=== PATIENT | female | born 1970 | race Caucasian/White ===

== ENCOUNTER 2019-07-24 20:12 | Emergency (ER) | payer BC ==
[~2019-07-24] VITALS: Ht 162.6 cm; Wt 104.0 kg
[~2019-07-24 20:12] MED LIST: ALPR-624 PO; CLON-527 PO; COM5T PO; CYCL-394 PO; DICY10CA88 PO; EST1T PO; HYDR-3965 PO; HYOS-13 PO; LEVO175T52 PO; TOP100T PO; VENL-190 PO; ZOLP5TAB8 PO
[2019-07-24 20:48] LABS: BASOPHILS # (AUTO) 0.1 X10'3 (0-0.2); BASOPHILS % (AUTO) 1.2 % (0-1); EOSINOPHILS # (AUTO) 0.2 X10'3 (0-0.9); EOSINOPHILS % (AUTO) 1.8 % (0-6); HEMATOCRIT 44.7 % (35.0-45.0); HEMOGLOBIN 15.1 g/dl (12.0-16.0); LYMPHOCYTES % (AUTO) 36.1 % (21-51); MEAN CORPUSCULAR HEMOGLOBIN 30.9 PG (27.0-31.0); MEAN CORPUSCULAR HGB CONC 33.8 g/dL (33.0-36.5); MEAN CORPUSCULAR VOLUME 91.4 FL (78-98); MEAN PLATELET VOLUME 7.3 FL (7.4-10.4); MONOCYTES # (AUTO) 0.7 X10'3 (0-0.9); MONOCYTES % (AUTO) 6.3 % (2-12); NEUTROPHILS # (AUTO) 6.1 X10'3 (1.8-7.7); NEUTROPHILS % (AUTO) 54.6 % (42-75); PLATELET COUNT 384 X10'3 (140-440); RED BLOOD COUNT 4.89 X10'6 (4.20-5.60); RED CELL DISTRIBUTION WIDTH 14.3 % (11.5-14.5); WHITE BLOOD COUNT 11.1 X10'3 (4.5-11.0)
[2019-07-24 21:00] LABS: ALANINE AMINOTRANSFERASE 51 U/L (12-78); ALBUMIN 3.9 G/DL (3.4-5.0); ALBUMIN/GLOBULIN RATIO 0.8 (1.1-1.5); ALKALINE PHOSPHATASE 104 IU/L (46-116); AMYLASE 24 U/L (25-115); ANION GAP 9 (8-16); ASPARTATE AMINO TRANSFERASE 26 U/L (10-37); BILIRUBIN,TOTAL 0.2 MG/DL (0.1-1.0); BLOOD UREA NITROGEN 17 MG/DL (7-18); BUN/CREATININE RATIO 13.8 (6.6-38.0); CALCIUM 9.8 MG/DL (8.5-10.1); CHLORIDE 104 MMOL/L (99-107); CREATININE 1.23 MG/DL (0.40-0.90); GLUCOSE 132 MG/DL (70-104); LIPASE 130 U/L (73-393); POTASSIUM 3.5 MMOL/L (3.5-5.1); SODIUM 142 MMOL/L (135-145); TOTAL CARBON DIOXIDE 28.6 MMOL/L (24-32); TOTAL PROTEIN 8.5 G/DL (6.4-8.2); eGFR 47 ML/MIN
--- NOTE | 2019-07-24 21:25 | NUR ---
Pt up to restroom to provide urine sample.
[2019-07-24 21:56] LABS: URINE HCG NEGATIVE (NEG)
[2019-07-24 21:57] LABS: COLOR,URINE YELLOW (Yellow); GLUCOSE, URINE NEGATIVE (Neg); KETONES,URINE NEGATIVE (Neg); LEUKOCYTE ESTERASE ,URINE NEGATIVE (Neg); NITRITES, URINE NEGATIVE (Neg); OCCULT BLOOD,URINE TRACE-INTACT (Neg); PH,URINE 5.5 (4.8-8.0); PROTEIN,URINE NEGATIVE (Neg); UROBILINOGEN,URINE 0.2 E.U/dL (0.2-1.0)
[2019-07-24 22:04] LABS: CLARITY,URINE SLIGHTLY CLOUDY (Clear); UA COLLECTION TYPE CLN CATCH MIDSTREAM
[2019-07-24] MEDS ORDERED: morphine 4 MG/ML inj SYRINge IV PRN (22:05)
[2019-07-24] MEDS ORDERED: normal saline 1000ML IV soln IVB ONE (22:05)
[2019-07-24] MEDS ORDERED: ondansetron/PF 4mg/2ml inj IV ONE (22:05)
[2019-07-24] MEDS ORDERED: famotidine/PF 10 mg/ml inj IV ONE (22:05)
[2019-07-24] MEDS ORDERED: ketorolac trometh. 30mg/ml inj. IV ONE (22:05)
[2019-07-24 22:26] LABS: BACTERIA,URINE FEW /HPF (Neg); MUCUS STRANDS FEW /LPF (Neg); RBC,URINE 0-2 /HPF (0-2); SQUAMOUS EPITHELIAL CELL,UR FEW /LPF (FEW); WBC,URINE 0-4 /HPF (0-4)
[2019-07-24 22:27] LABS: FINE GRANULAR CAST 0-3 /LPF (NEGATIVE); HYALINE CASTS 0-3 /LPF (NEGATIVE); URIC ACID CRYSTALS 1+ /HPF (NEGATIVE)
[2019-07-25 00:46] VITALS: BP 136/80
== END 2019-07-25 00:50 | disposition home or self-care (01) ==
LOC: ER 20:13
DX: K59.00 Constipation, unspecified (principal); K44.9 Diaphragmatic hernia without obstruction or gangrene; R11.2 Nausea with vomiting, unspecified; R19.7 Diarrhea, unspecified; R50.9 Fever, unspecified; I10 Essential (primary) hypertension; G89.29 Other chronic pain; F41.9 Anxiety disorder, unspecified; F32.9 Major depressive disorder, single episode, unspecified; F12.90 Cannabis use, unspecified, uncomplicated; Z88.8 Allergy status to other drugs, medicaments and biological substances; Z88.1 Allergy status to other antibiotic agents; Z79.899 Other long term (current) drug therapy; Z90.49 Acquired absence of other specified parts of digestive tract; Z87.442 Personal history of urinary calculi; Z98.890 Other specified postprocedural states; Z90.710 Acquired absence of both cervix and uterus
CPT/HCPCS: 36415; 74176; 76700; 80053; 81001; 81025; 82150; 83690; 85025; 96361; 96374; 96375; 99284; J1885; J2405; J3490; J7030

== ENCOUNTER 2021-01-24 08:31 | Emergency (ER) | payer BC ==
[~2021-01-24] VITALS: Ht 160 cm; Wt 105.6 kg
[2021-01-24] MEDS ORDERED: proCHLORperazine 10 MG/2 ml inj IV ONE (09:30)
[2021-01-24] MEDS ORDERED: diazepam inj 5 MG/ML inj. IV ONE ×2 (09:30→11:05)
[2021-01-24] MEDS ORDERED: pantoprazole 40 MG vial IV ONE (09:30)
[2021-01-24] MEDS ORDERED: normal saline 1000ML IV soln IVB ONE (09:30)
[2021-01-24 09:43] LABS: BASOPHILS # (AUTO) 0.1 X10'3 (0-0.2); BASOPHILS % (AUTO) 0.8 % (0-1); EOSINOPHILS # (AUTO) 0.2 X10'3 (0-0.9); EOSINOPHILS % (AUTO) 1.5 % (0-6); HEMATOCRIT 46.5 % (35.0-45.0); HEMOGLOBIN 15.5 g/dl (12.0-16.0); LYMPHOCYTES # (AUTO) 3.7 X10'3 (1.1-4.8); LYMPHOCYTES % (AUTO) 28.9 % (21-51); MEAN CORPUSCULAR HEMOGLOBIN 31.3 PG (27.0-31.0); MEAN CORPUSCULAR HGB CONC 33.4 g/dL (33.0-36.5); MEAN CORPUSCULAR VOLUME 93.7 FL (78-98); MEAN PLATELET VOLUME 8.4 FL (7.4-10.4); MONOCYTES # (AUTO) 0.8 X10'3 (0-0.9); MONOCYTES % (AUTO) 6.1 % (2-12); NEUTROPHILS # (AUTO) 7.9 X10'3 (1.8-7.7); NEUTROPHILS % (AUTO) 62.7 % (42-75); PLATELET COUNT 383 X10'3 (140-440); RED BLOOD COUNT 4.96 X10'6 (4.20-5.60); WHITE BLOOD COUNT 12.7 X10'3 (4.5-11.0)
[2021-01-24 10:03] LABS: ALANINE AMINOTRANSFERASE 81 U/L (12-78); ALBUMIN 4.3 G/DL (3.4-5.0); ALKALINE PHOSPHATASE 109 IU/L (46-116); ANION GAP 15 (8-16); ASPARTATE AMINO TRANSFERASE 67 U/L (10-37); BILIRUBIN,TOTAL 0.8 MG/DL (0.1-1.0); BLOOD UREA NITROGEN 13 MG/DL (7-18); BUN/CREATININE RATIO 9.6 (6.6-38.0); CALCIUM 9.3 MG/DL (8.5-10.1); CHLORIDE 103 MMOL/L (99-107); CREATININE 1.36 MG/DL (0.40-0.90); GLUCOSE 152 MG/DL (70-104); LIPASE 182 U/L (73-393); POTASSIUM 3.2 MMOL/L (3.5-5.1); SODIUM 142 MMOL/L (135-145); TOTAL CARBON DIOXIDE 24.1 MMOL/L (24-32); TOTAL PROTEIN 8.6 G/DL (6.4-8.2); eGFR 41 ML/MIN
[2021-01-24] MEDS ORDERED: potassium Cl 10 mEq/100mL bag IV ONE (10:20)
[2021-01-24] MEDS ORDERED: PANT-47 PO (10:46)
[2021-01-24] MEDS ORDERED: PROC-8 PO (10:46)
[2021-01-24 11:45] VITALS: BP 138/75
== END 2021-01-24 11:47 | disposition home or self-care (01) ==
LOC: ER 08:32
DX: F11.23 Opioid dependence with withdrawal (principal); E87.6 Hypokalemia; E86.0 Dehydration; I10 Essential (primary) hypertension; G89.29 Other chronic pain; F41.9 Anxiety disorder, unspecified; F32.9 Major depressive disorder, single episode, unspecified; F12.90 Cannabis use, unspecified, uncomplicated; Z87.442 Personal history of urinary calculi; Z90.49 Acquired absence of other specified parts of digestive tract; Z90.710 Acquired absence of both cervix and uterus; Z98.890 Other specified postprocedural states; Z88.8 Allergy status to other drugs, medicaments and biological substances; Z88.1 Allergy status to other antibiotic agents; Z79.899 Other long term (current) drug therapy
CPT/HCPCS: 36415; 80053; 83690; 85025; 96361; 96365; 96375; 96376; 99284; C9113; J0780; J3360; J3480; J7030

== ENCOUNTER 2021-02-08 12:31 | Inpatient (IN) | payer BC ==
[~2021-02-08] VITALS: Ht 162.6 cm; Wt 100.0 kg
[~2021-02-08 12:31] MED LIST changes: +PANT-47 PO; +PROC-8 PO
--- NOTE | 2021-02-08 13:06 | NUR ---
DR DICKEY AT BEDSIDE
--- NOTE | 2021-02-08 13:14 | NUR ---
LEVEL [address] DICKEY, EMS CBG WAS 140
[2021-02-08 13:36] LABS: BASOPHILS # (AUTO) 0.1 X10'3 (0-0.2); BASOPHILS % (AUTO) 0.8 % (0-1); EOSINOPHILS # (AUTO) 0.2 X10'3 (0-0.9); EOSINOPHILS % (AUTO) 2.1 % (0-6); HEMATOCRIT 45.9 % (35.0-45.0); HEMOGLOBIN 15.4 g/dl (12.0-16.0); LYMPHOCYTES # (AUTO) 2.6 X10'3 (1.1-4.8); LYMPHOCYTES % (AUTO) 23.9 % (21-51); MEAN CORPUSCULAR HEMOGLOBIN 31.5 PG (27.0-31.0); MEAN CORPUSCULAR HGB CONC 33.5 g/dL (33.0-36.5); MEAN PLATELET VOLUME 8.5 FL (7.4-10.4); MONOCYTES # (AUTO) 0.7 X10'3 (0-0.9); MONOCYTES % (AUTO) 6.8 % (2-12); NEUTROPHILS # (AUTO) 7.2 X10'3 (1.8-7.7); NEUTROPHILS % (AUTO) 66.4 % (42-75); PLATELET COUNT 324 X10'3 (140-440); RED BLOOD COUNT 4.88 X10'6 (4.20-5.60); RED CELL DISTRIBUTION WIDTH 14.2 % (11.5-14.5); WHITE BLOOD COUNT 10.8 X10'3 (4.5-11.0)
[2021-02-08 13:45] LABS: PARTIAL THROMBOPLASTIN TIME 27 SECONDS (22-32)
[2021-02-08 13:49] LABS: ALANINE AMINOTRANSFERASE 78 U/L (12-78); ALBUMIN 3.8 G/DL (3.4-5.0); ALBUMIN/GLOBULIN RATIO 0.9 (1.1-1.5); ALKALINE PHOSPHATASE 110 IU/L (46-116); ANION GAP 15 (8-16); ASPARTATE AMINO TRANSFERASE 57 U/L (10-37); BILIRUBIN,TOTAL 0.7 MG/DL (0.1-1.0); BLOOD UREA NITROGEN 10 MG/DL (7-18); CALCIUM 9.4 MG/DL (8.5-10.1); CHLORIDE 104 MMOL/L (99-107); GLUCOSE 145 MG/DL (70-104); POTASSIUM 3.3 MMOL/L (3.5-5.1); SODIUM 142 MMOL/L (135-145); TOTAL CARBON DIOXIDE 23.4 MMOL/L (24-32); TOTAL PROTEIN 7.9 G/DL (6.4-8.2); eGFR 59 ML/MIN
--- NOTE | 2021-02-08 13:50 | NUR ---
PT BACK TO ROOM FROM CT, TELE NEURO HAS BEEN CALLED, CAMERA SET UP IN ROOM
[2021-02-08] MEDS ORDERED: DICL100G30 TOP (13:54)
[2021-02-08] MEDS ORDERED: DULO60CA65 PO ×2 (13:54→14:25)
[2021-02-08] MEDS ORDERED: PANT40TA54 PO (13:54)
[2021-02-08] MEDS ORDERED: NALT50TA PO (13:54)
[2021-02-08] MEDS ORDERED: HYDR-3972 PO (13:54)
[2021-02-08] MEDS ORDERED: TOP100T PO (13:54)
[2021-02-08] MEDS ORDERED: LEVO200T8 PO (13:54)
[2021-02-08] MEDS ORDERED: ATOR10TA70 PO (13:54)
[2021-02-08] MEDS ORDERED: iohexol 350MG/ML 100ml bottle IV ONE (14:09)
[2021-02-08 14:28] LABS: CLARITY,URINE CLOUDY (Clear); COLOR,URINE YELLOW (Yellow); GLUCOSE, URINE 250 mg/dl (Neg); KETONES,URINE TRACE mg/dl (Neg); LEUKOCYTE ESTERASE ,URINE NEGATIVE (Neg); NITRITES, URINE NEGATIVE (Neg); OCCULT BLOOD,URINE TRACE-INTACT (Neg); PROTEIN,URINE NEGATIVE (Neg); UROBILINOGEN,URINE 0.2 E.U/dL (0.2-1.0)
[2021-02-08 14:29] LABS: UA COLLECTION TYPE CLN CATCH MIDSTREAM
[2021-02-08 14:34] LABS: URINE AMPHETAMINE SCREEN NEGATIVE (Neg); URINE BARBITUATE SCREEN NEGATIVE (Neg); URINE BENZODIAZEPINES SCREEN NEGATIVE (Neg); URINE CANNABINOID SCREEN POSITIVE (Neg); URINE COCAINE SCREEN NEGATIVE (Neg); URINE METHADONE SCREEN NEGATIVE (Neg); URINE OPIATE SCREEN NEGATIVE (Neg); URINE PHENCYCLIDINE SCREEN NEGATIVE (Neg)
[2021-02-08 14:38] LABS: MUCUS STRANDS MODERATE /LPF (Neg); SQUAMOUS EPITHELIAL CELL,UR MANY /LPF (FEW)
[2021-02-08 14:40] LABS: BACTERIA,URINE 1+ /HPF (Neg); RBC,URINE 0-2 /HPF (0-2)
[2021-02-08] MEDS ORDERED: ketorolac tromethamine 15mg/ml inj. IV ONE (15:05)
--- NOTE | 2021-02-08 15:05 | NUR ---
PT C/O MARTINEZ STILL, TELE NEURO HAD RECOMMENDED TORADOL, KELI HAS LEFT, PT AWAITING HOSPITALIST, DR CHIRINOS ATTENDING NOTIFIED AND ORDER FOR TORADOL GIVEN
--- NOTE | 2021-02-08 17:30 | NUR ---
Ami adhikari in ED - 02/08/21 at 1732 by [email or web address] [place] CALLED ON BEHALF OF PTS SON, WHO IS IN [employer] AND IS CONCERENED FOR HIS MOTHER. PT GAVE ME PERMISSION TO GIVE THEM INFORMATION AND I TOLD THEM SHE IS: BEING WORKED UP FOR STROKE GOING TO BE ADMITTED
--- NOTE | 2021-02-08 17:30 | NUR ---
THIS NOTE PREVIOUSLY WRITTEN IN ERROR UNDER ANOTHER RN'S NAME WHO WAS LOGGED ONTO COMPUTER: PTS SON IS IN [employer] AND IS CONCERNED FOR HIS MOTHER, WE ARE CONTACTED AT THIS TIME BY [place] [facility]. PT GIVES PERMISSION TO GIVE THEM INFO, AND I TOLD THEM: PT IS HERE IN ER, BEING EVALUATED FOR STROKE WILL BE ADMITTED OVERNIGHT
[2021-02-08] MEDS ORDERED: morphine 2 MG/ML inj. syringe IV PRN ×2 (17:40)
[2021-02-08] MEDS ORDERED: potassium Cl 40MEQ/1/2NS 520ml 520 ML IV PRN ×2 (17:40)
[2021-02-08] MEDS ORDERED: potassium Cl 20 mEq SR tablet PO PRN (17:40)
[2021-02-08] MEDS ORDERED: magnesium Cl slow-release 64mg tablet PO PRN (17:40)
[2021-02-08] MEDS ORDERED: magnesium 2GM in 50ml NS 50 ML IV PRN (17:40)
[2021-02-08] MEDS ORDERED: ondansetron/PF 4mg/2ml inj IV PRN (17:40)
[2021-02-08] MEDS ORDERED: aspirin 325mg tablet PO ONE (17:40)
[2021-02-08] MEDS ORDERED: magnesium 4gm in 100ml NS 100 ML IV PRN (17:40)
[2021-02-08] MEDS ORDERED: bisacodyl 10mg suppository rectal RC PRN (17:40)
[2021-02-08] MEDS ORDERED: acetaminophen 325mg tablet PO PRN (17:40)
[2021-02-08] MEDS ORDERED: mag hydrox/Alum hydrox/simeth 30ml oral suspension PO PRN (17:40)
[2021-02-08] MEDS ORDERED: magnesium hydroxide 30ml (MOM) UD suspension PO PRN (17:40)
[2021-02-08] MEDS ORDERED: HYDROcodone/acetaminophen 5mg/325mg tablet PO PRN (17:40)
[2021-02-08] MEDS ORDERED: acetaminophen 650mg rectal suppository RC PRN (17:40)
[2021-02-08 18:11] LABS: CHOL/HDL RATIO 6.6 (0.00-4.99); CHOLESTEROL 211 MG/DL (0-200); HDL CHOLESTEROL 32 MG/DL (35-60); HEMOGLOBIN A1C 7.4 % (4.5-6.2); LDL CHOLESTEROL 150 MG/DL (50-100); TRIGLYCERIDES 186 MG/DL (20-135)
[2021-02-08] MEDS: normal saline 1000ml 1,000 ML IV SCH (18:26)
[2021-02-08] MEDS: atorvastatin 20mg tablet PO SCH (18:27)
[2021-02-08] MEDS: K and/or MAG REPLACEMENT MC SCH (20:00)
--- NOTE | 2021-02-08 20:14 | NUR ---
PT AT BEDSIDE AND APARNA HER SOME FOOT. INTERACTING APPROPRIATELY AND IS HELPFUL WITH PT. PT ASSISTED TO BR TO VOID. PT IS PLEASANT AND COOPERATIVE. AWAITING IPA.
[2021-02-08] MEDS: HYDROcodone/acetaminophen 10/325mg tab PO PRN (20:58)
[2021-02-08] MEDS: potassium Cl 20 mEq SR tablet PO PRN (21:00)
[2021-02-08] MEDS: heparin, porcine 5000 units/ml vial SQ SCH (21:00)
[2021-02-09] MEDS ORDERED: diphenhydrAMINE 25mg capsule PO PRN (00:50)
[2021-02-09 01:35] LABS: BASOPHILS # (AUTO) 0.1 X10'3 (0-0.2); BASOPHILS % (AUTO) 0.9 % (0-1); EOSINOPHILS # (AUTO) 0.2 X10'3 (0-0.9); EOSINOPHILS % (AUTO) 2.3 % (0-6); HEMATOCRIT 42.8 % (35.0-45.0); HEMOGLOBIN 14.3 g/dl (12.0-16.0); LYMPHOCYTES # (AUTO) 3.7 X10'3 (1.1-4.8); LYMPHOCYTES % (AUTO) 35.8 % (21-51); MEAN CORPUSCULAR HEMOGLOBIN 31.6 PG (27.0-31.0); MEAN CORPUSCULAR HGB CONC 33.5 g/dL (33.0-36.5); MEAN CORPUSCULAR VOLUME 94.4 FL (78-98); MEAN PLATELET VOLUME 8.4 FL (7.4-10.4); MONOCYTES # (AUTO) 0.8 X10'3 (0-0.9); MONOCYTES % (AUTO) 7.4 % (2-12); NEUTROPHILS # (AUTO) 5.6 X10'3 (1.8-7.7); NEUTROPHILS % (AUTO) 53.6 % (42-75); PLATELET COUNT 325 X10'3 (140-440); RED BLOOD COUNT 4.53 X10'6 (4.20-5.60); WHITE BLOOD COUNT 10.4 X10'3 (4.5-11.0)
[2021-02-09 01:49] LABS: ALANINE AMINOTRANSFERASE 70 U/L (12-78); ALBUMIN 3.3 G/DL (3.4-5.0); ALBUMIN/GLOBULIN RATIO 0.9 (1.1-1.5); ALKALINE PHOSPHATASE 97 IU/L (46-116); ANION GAP 11 (8-16); ASPARTATE AMINO TRANSFERASE 46 U/L (10-37); BILIRUBIN,TOTAL 0.4 MG/DL (0.1-1.0); BLOOD UREA NITROGEN 12 MG/DL (7-18); BUN/CREATININE RATIO 10.4 (6.6-38.0); CALCIUM 8.9 MG/DL (8.5-10.1); CHLORIDE 105 MMOL/L (99-107); CHOL/HDL RATIO 7.3 (0.00-4.99); CHOLESTEROL 190 MG/DL (0-200); CREATININE 1.15 MG/DL (0.40-0.90); GLUCOSE 191 MG/DL (70-104); HDL CHOLESTEROL 26 MG/DL (35-60); LDL CHOLESTEROL 132 MG/DL (50-100); MAGNESIUM 2.1 MG/DL (1.5-2.4); PHOSPHORUS 3.6 MG/DL (2.3-4.5); POTASSIUM 3.1 MMOL/L (3.5-5.1); SODIUM 140 MMOL/L (135-145); TOTAL PROTEIN 6.8 G/DL (6.4-8.2); TRIGLYCERIDES 230 MG/DL (20-135); eGFR 50 ML/MIN
--- NOTE | 2021-02-09 02:00 | NUR ---
PT ARRIVED TO ROOM 4010A FROM ER AND HAS BEEN ORIENTED TO THE ROOM. SKIN CHECKED. VSS. RECEIVED REPORT FROM BERTHA HATFIELD PRIOR TO PT'S ARRIVAL.
[2021-02-09 02:42] VITALS: BP 131/93
[2021-02-09] MEDS: normal saline 1000ml 1,000 ML IV SCH ×2 (03:40→07:20)
[2021-02-09] MEDS: potassium Cl 20 mEq SR tablet PO PRN ×3 (04:13→15:57)
--- NOTE | 2021-02-09 06:11 | NUR ---
Problems reprioritized. Patient report given, questions answered & plan of care reviewed with BERTHA LAL.
--- NOTE | 2021-02-09 06:13 | NUR ---
Patient in room ORTHO 4011. I have received report from BERTHA Reddy and had the opportunity to ask questions and assume patient care.
[2021-02-09 07:01] VITALS: BP 139/71
[2021-02-09] MEDS: atorvastatin 20mg tablet PO SCH (07:08)
[2021-02-09] MEDS: heparin, porcine 5000 units/ml vial SQ SCH (07:09)
[2021-02-09] MEDS: HYDROcodone/acetaminophen 10/325mg tab PO PRN (07:09)
[2021-02-09] MEDS ORDERED: duloxetine 30mg CAPSULE.DR PO SCH (08:00)
[2021-02-09] MEDS: K and/or MAG REPLACEMENT MC SCH (08:00)
[2021-02-09] MEDS ORDERED: levoTHYROXINE 100mcg tablet PO SCH (08:00)
[2021-02-09] MEDS ORDERED: pantoprazole 40mg Tablet.DR PO SCH (08:00)
[2021-02-09] MEDS ORDERED: topiramate 100mg tablet PO SCH (08:00)
[2021-02-09] MEDS ORDERED: aspirin 325mg tablet PO SCH (08:30)
--- NOTE | 2021-02-09 09:19 | NUR ---
PAGER ID: [phone] MESSAGE: [id number]- Cait Ambriz- pt states VERY claustrophobic. needs something for MRI. Thank you- Joe [phone]
[2021-02-09] MEDS ORDERED: LORazepam 2 mg/ml vial IV ONE (09:25)
[2021-02-09] MEDS ORDERED: pneumococcal 23-VAL P-sac vacc 25 mcg/0.5ml vial IMVAC ONE (10:00)
--- NOTE | 2021-02-09 10:09 | NUR ---
Patient down to MRI
--- NOTE | 2021-02-09 11:08 | NUR ---
patient back to room 4011A.
--- NOTE | 2021-02-09 11:34 | NUR ---
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 A1C 7.4 this admit w/ no prior DM hx; JACOB d/w RN who reports pt is not aware of new DM onset and no prior DX. JACOB miller/w RN regarding official MD DX of DM since unable to provide education until then. Noted TG 230, LDL 132, and HDL 26 this admit on heart healthy diet s/p READING EFFICIENCY COURSE DIRECTOR BSS; JACOB miller/w RN recommends carb controlled diet if MD agreeable. Pt would benefit from written/verbal DM/HH diet eds this admit. PO meals pending at this time. LBM 02/08. Will monitor for PO hx, ONS needs, and DM ed need following official DM DX by MD this admit. Rec: 1. continue heart healthy diet; consider carb controlled addition w/ new DM 2. monitor for ONS needs 3. routine bowel care 4. scaled wt this admit 5. DM ed following official DM DX by MD this admit Addendum: 02/09/21 at [address] Amended: Links added.
--- NOTE | 2021-02-09 11:48 | NUR ---
certified medical technician assistant in at bedside.
[2021-02-09 11:51] VITALS: BP 154/99
--- NOTE | 2021-02-09 11:57 | NUR ---
Dr Rosado in to see patient. emergency response technician and at bedside as well.
[2021-02-09] MEDS ORDERED: dextrose ORAL solution 15 GM/59 ML bottle PO PRN ×2 (12:00)
[2021-02-09] MEDS ORDERED: MESSAGE TO PHARMACY PO ONE (12:00)
[2021-02-09] MEDS ORDERED: dextrose 50%-water 50ml dispensing syringe IV PRN ×2 (12:00)
[2021-02-09] MEDS ORDERED: glucagon, human recombinant 1mg kit SUBCUT PRN (12:00)
[2021-02-09] MEDS ORDERED: insulin Lispro (HumaLOG) vial - multi-dose SQ SCH (12:00)
[2021-02-09] MEDS ORDERED: ATOR20TA66 PO (13:54)
[2021-02-09] MEDS ORDERED: LISI20TA28 PO (13:54)
[2021-02-09] MEDS ORDERED: METF-950 PO (13:54)
[2021-02-09] MEDS ORDERED: ASPI-611 PO (13:54)
--- NOTE | 2021-02-09 15:09 | NUR ---
F/u: Pt pending discharge and has received DM DX by . Pt seen by RD for thorough written/verbal DM ed w/ RD contact information provided. Pt reports is conscious of nutrition facts labels, consumes higher fiber diet mostly vegetarian at home, and has had gestational DM w/ each child. RD reviewed importance of protein, vegetarian protein sources, hydration, carb counting, optimal portion sizes, meal planning strategies, and appropriate snack options. RD encouraged pt to contact dietitian's office if further questions/concerns. Addendum: 02/09/21 at [address] Amended: Links added.
--- NOTE | 2021-02-09 15:34 | NUR ---
Patient reports that neurologist had told her that there is "a special protocol for these types of migraines, toradol, reglan and benadry" patient asking if she would be given these prescriptions or if she would have to come to ER if she has same symptoms. Dr. Rosado notified and ordered for patient to have toradol, reglan and benadryl and observe for 30mins after administration before dc.
[2021-02-09] MEDS ORDERED: metoclopramide 5 mg/ml inj IV ONE (15:35)
[2021-02-09] MEDS ORDERED: diphenhydrAMINE 50 mg/ml inj IV ONE (15:35)
[2021-02-09] MEDS ORDERED: ketorolac tromethamine 15mg/ml inj. IV ONE (15:40)
--- NOTE | 2021-02-09 16:20 | NUR ---
Patient alert and oriented in no apparent distress and no complaints. Discussed discharge instructions, follow up and new prescriptions with spouse at bedside with patient's consent. Patient given opportunity to have all questions asked and answered. Patient verbalizes understanding of teaching. Patient given paper prescription for glucometer, lancet and strips. All other new prescriptions escript to [facility] per patient's preferred pharmacy. Patient waiting for 30 min observation period then ready for DC. Addendum: 02/09/21 at 1718 by Joe Bermeo RN Patient states she had gestational diabetes with all 3 of her pregnancies and is educated on how to manage diabetes. Reinforced edcucation with diabetes survival skills packet.
--- NOTE | 2021-02-09 17:14 | NUR ---
Patient alert and oriented in no apparent distress and no complaints. Patient states feeling excited about going home to see son who was able to return home from [employer] duties on a 10 day leave. Patient escorted out in wheelchair by ALESHIA Casiano. Spouse took all personal belongings to car already.
[2021-02-09] MEDS ORDERED: insulin glargine (Lantus) pen - multi-dose SQ SCH (21:00)
== END 2021-02-09 17:15 | disposition home health service (06) | DRG 103 ==
LOC: ER 12:32 → ED HOLD 17:38 → ORTHO 4S 02-09 01:30
PROVIDERS: ADMIT Family Medicine; ATTEND Family Medicine
PROC: B3251ZZ Computerized Tomography (CT Scan) of Bilateral Common Carotid Arteries using Low Osmolar Contrast (ICD-10-PCS; 2021-02-08)
PROC: B32G1ZZ Computerized Tomography (CT Scan) of Bilateral Vertebral Arteries using Low Osmolar Contrast (ICD-10-PCS; 2021-02-08)
PROC: B32R1ZZ Computerized Tomography (CT Scan) of Intracranial Arteries using Low Osmolar Contrast (ICD-10-PCS; 2021-02-08)
PROC: B3281ZZ Computerized Tomography (CT Scan) of Bilateral Internal Carotid Arteries using Low Osmolar Contrast (ICD-10-PCS; 2021-02-08)
PROC: 3E0234Z Introduction of Serum, Toxoid and Vaccine into Muscle, Percutaneous Approach (ICD-10-PCS; principal; 2021-02-09)
DX: G43.109 Migraine with aura, not intractable, without status migrainosus (principal); Q79.60 Ehlers-Danlos syndrome, unspecified; E06.3 Autoimmune thyroiditis; E66.9 Obesity, unspecified; F12.90 Cannabis use, unspecified, uncomplicated; F41.9 Anxiety disorder, unspecified; G89.4 Chronic pain syndrome; F32.9 Major depressive disorder, single episode, unspecified; M54.9 Dorsalgia, unspecified; I10 Essential (primary) hypertension; K21.9 Gastro-esophageal reflux disease without esophagitis; M79.7 Fibromyalgia; Z79.82 Long term (current) use of aspirin; Z79.890 Hormone replacement therapy; Z79.899 Other long term (current) drug therapy; Z82.3 Family history of stroke; Z82.49 Family history of ischemic heart disease and other diseases of the circulatory system; Z87.442 Personal history of urinary calculi; Z87.891 Personal history of nicotine dependence; Z90.49 Acquired absence of other specified parts of digestive tract; Z90.710 Acquired absence of both cervix and uterus; Z23 Encounter for immunization; Z88.8 Allergy status to other drugs, medicaments and biological substances; Z68.37 Body mass index [BMI] 37.0-37.9, adult; Z71.3 Dietary counseling and surveillance; Z71.51 Drug abuse counseling and surveillance of drug abuser
CPT/HCPCS: 36415; 70450; 70496; 70498; 71045; 80053; 80061; 80305; 81001; 82948; 83036; 83735; 84100; 84145; 84443; 85025; 85610; 85651; 85730; 87081; 87088; 90732; 92508; 92616; 93005; 93306; 96374; 97161; 97530; 99285; G0378; J1200; J1644; J1815; J1885; J2060; J2405; J2765; J7030; Q0163; Q9967

== ENCOUNTER 2021-02-15 14:44 | Emergency (ER) | payer BC ==
[~2021-02-15] VITALS: Ht 162.6 cm; Wt 102.3 kg
[~2021-02-15 14:44] MED LIST changes: -ALPR-624 PO; +ASPI-611 PO; +ATOR20TA66 PO; -CLON-527 PO; -COM5T PO; -CYCL-394 PO; +DICL100G30 TOP; -DICY10CA88 PO; +DULO60CA65 PO; -EST1T PO; -HYDR-3965 PO; -HYOS-13 PO; -LEVO175T52 PO; +LEVO200T8 PO; +LISI20TA28 PO; +METF-950 PO; -PANT-47 PO; +PANT40TA54 PO; -PROC-8 PO; -VENL-190 PO; -ZOLP5TAB8 PO
[2021-02-15 14:49] VITALS: BP 191/109
[2021-02-16] MEDS ORDERED: LEVO50TA8 PO (17:59)
== END 2021-02-15 16:50 | disposition home or self-care (01) ==
LOC: ER 14:45
DX: S99.912A Unspecified injury of left ankle, initial encounter (principal); I10 Essential (primary) hypertension; E11.9 Type 2 diabetes mellitus without complications; G89.29 Other chronic pain; F41.9 Anxiety disorder, unspecified; F32.9 Major depressive disorder, single episode, unspecified; F12.90 Cannabis use, unspecified, uncomplicated; Z86.73 Personal history of transient ischemic attack (TIA), and cerebral infarction without residual deficits; Z87.442 Personal history of urinary calculi; Z90.89 Acquired absence of other organs; Z90.710 Acquired absence of both cervix and uterus; Z98.890 Other specified postprocedural states; Z72.89 Other problems related to lifestyle; Z88.8 Allergy status to other drugs, medicaments and biological substances; Z88.1 Allergy status to other antibiotic agents; Z91.013 Allergy to seafood; Z79.82 Long term (current) use of aspirin; Z79.899 Other long term (current) drug therapy; X58.XXXA Exposure to other specified factors, initial encounter; Y93.89 Activity, other specified; Y92.89 Other specified places as the place of occurrence of the external cause; Y99.8 Other external cause status
CPT/HCPCS: 73590; 73610; 99284

== ENCOUNTER 2023-11-17 11:14 | Inpatient (IN) | payer BC ==
[~2023-11-17] VITALS: Ht 162.6 cm; Wt 112.9 kg
[~2023-11-17 11:14] MED LIST changes: -ASPI-611 PO; -DICL100G30 TOP; +DICL100G59 TOP; +LEVO50TA8 PO; -LISI20TA28 PO; -METF-950 PO
[2023-11-17 13:00] LABS: BASOPHILS # (AUTO) 0.1 X10'3 (0-0.2); BASOPHILS % (AUTO) 0.9 % (0-1); EOSINOPHILS # (AUTO) 0.3 X10'3 (0-0.9); EOSINOPHILS % (AUTO) 2.1 % (0-6); HEMATOCRIT 46.6 % (35.0-45.0); HEMOGLOBIN 15.8 g/dl (12.0-16.0); LYMPHOCYTES # (AUTO) 3.3 X10'3 (1.1-4.8); LYMPHOCYTES % (AUTO) 24.9 % (21-51); MEAN CORPUSCULAR HEMOGLOBIN 30.3 PG (27.0-31.0); MEAN CORPUSCULAR HGB CONC 33.9 g/dL (33.0-36.5); MEAN CORPUSCULAR VOLUME 89.3 FL (78-98); MEAN PLATELET VOLUME 8.7 FL (7.4-10.4); MONOCYTES # (AUTO) 0.8 X10'3 (0-0.9); MONOCYTES % (AUTO) 6.3 % (2-12); NEUTROPHILS # (AUTO) 8.8 X10'3 (1.8-7.7); NEUTROPHILS % (AUTO) 65.8 % (42-75); PLATELET COUNT 345 X10'3 (140-440); RED BLOOD COUNT 5.22 X10'6 (4.20-5.60); RED CELL DISTRIBUTION WIDTH 13.7 % (11.5-14.5); WHITE BLOOD COUNT 13.4 X10'3 (4.5-11.0)
[2023-11-17 13:12] LABS: URINE HCG NEGATIVE (NEG)
[2023-11-17 13:20] LABS: ALBUMIN 3.7 G/DL (3.4-5.0); ANION GAP 11 (8-16); BLOOD UREA NITROGEN 18 MG/DL (7-18); BUN/CREATININE RATIO 18.4 (10.0-20.0); CHLORIDE 104 MMOL/L (99-107); CREATININE 0.98 MG/DL (0.40-0.90); GLUCOSE 320 MG/DL (70-104); POTASSIUM 4.2 MMOL/L (3.5-5.1); SODIUM 141 MMOL/L (135-145); TOTAL CARBON DIOXIDE 26.2 MMOL/L (24-32); eCRCL 58 ML/MIN; eGFR 60 ML/MIN
[2023-11-17 13:23] LABS: URINE AMPHETAMINE SCREEN NEGATIVE (Neg); URINE BARBITUATE SCREEN NEGATIVE (Neg); URINE BENZODIAZEPINES SCREEN NEGATIVE (Neg); URINE CANNABINOID SCREEN POSITIVE (Neg); URINE COCAINE SCREEN NEGATIVE (Neg); URINE METHADONE SCREEN NEGATIVE (Neg); URINE OPIATE SCREEN NEGATIVE (Neg); URINE PHENCYCLIDINE SCREEN NEGATIVE (Neg)
[2023-11-17 13:24] LABS: ETHANOL < 10 MG/DL (<10)
[2023-11-17] MEDS ORDERED: METF-436 PO (14:05)
[2023-11-17] MEDS ORDERED: TEN1T PO (14:05)
[2023-11-17] MEDS ORDERED: BUSP10TA11 PO (14:05)
[2023-11-17] MEDS ORDERED: OLAN5TAB5 PO (14:05)
[2023-11-17] MEDS ORDERED: PROP10TA10 PO (14:05)
[2023-11-17] MEDS ORDERED: VITA1CAP45 (14:05)
[2023-11-17] MEDS ORDERED: ATOR40TA PO (14:11)
[2023-11-17 14:30] LABS: BILIRUBIN,URINE SMALL (Neg); CLARITY,URINE SLIGHTLY CLOUDY (Clear); COLOR,URINE YELLOW (Yellow); GLUCOSE, URINE >=1000 mg/dl (Neg); KETONES,URINE 15 mg/dl (Neg); LEUKOCYTE ESTERASE ,URINE NEGATIVE (Neg); NITRITES, URINE NEGATIVE (Neg); OCCULT BLOOD,URINE NEGATIVE (Neg); PH,URINE 5.5 (4.8-8.0); PROTEIN,URINE NEGATIVE (Neg); UROBILINOGEN,URINE 0.2 E.U/dL (0.2-1.0)
[2023-11-17 14:38] LABS: UA COLLECTION TYPE CLN CATCH MIDSTREAM
[2023-11-17 14:40] LABS: BACTERIA,URINE NONE SEEN /HPF (Neg); CAL OXALATE CRYSTALS 2+ /HPF (NEGATIVE); MUCUS STRANDS FEW /LPF (Neg); SQUAMOUS EPITHELIAL CELL,UR FEW /LPF (FEW); WBC,URINE 0-4 /HPF (0-4)
[2023-11-17] MEDS: insulin regular, human 10 units/0.1 ml syringe SQ ONE (14:56)
[2023-11-17] MEDS: metFORMIN 500mg tablet PO SCH (20:06)
[2023-11-17] MEDS: OLANZapine 5mg rapidly disint. tablet PO SCH (20:06)
[2023-11-17] MEDS: atorvastatin 20mg tablet PO SCH (20:07)
[2023-11-17] MEDS: propranolol 10mg tablet PO SCH (20:07)
[2023-11-17] MEDS: busPIRone 15mg tablet PO SCH (20:07)
[2023-11-17] MEDS: guanFACINE 1 mg tablet PO SCH (20:07)
[2023-11-17] MEDS: busPIRone 5mg tablet PO SCH (20:08)
[2023-11-17] MEDS: duloxetine 30mg CAPSULE.DR PO SCH (20:08)
[2023-11-18] MEDS ORDERED: B COMPLEX WITH VITAMIN C SCH (08:00)
[2023-11-18] MEDS: pantoprazole 40mg Tablet.DR PO SCH (08:08)
[2023-11-18] MEDS: levoTHYROXINE 100mcg tablet PO SCH (08:09)
[2023-11-18] MEDS: topiramate 100mg tablet PO SCH (08:25)
[2023-11-18] MEDS: ibuprofen 200mg tablet PO ONE (09:34)
[2023-11-18 11:49] VITALS: RESP 18; O2SAT 91
[2023-11-18] MEDS ORDERED: loperamide 2mg capsule PO PRN (11:50)
[2023-11-18] MEDS ORDERED: mag hydrox/Alum hydrox/simeth 30ml oral suspension PO PRN (11:50)
[2023-11-18] MEDS ORDERED: acetaminophen 325mg tablet PO PRN (11:50)
[2023-11-18 12:48] VITALS: BP 160/82; PULSE 93; RESP 18; TEMP 98.2; O2SAT 93
[2023-11-18] MEDS ORDERED: DEXTROSE 15 GM of carb/4 tabs (each vial/BOTTLE has 4 tablets) PO PRN ×2 (14:25)
[2023-11-18] MEDS: MESSAGE TO PHARMACY PO ONE (14:25)
[2023-11-18] MEDS ORDERED: glucagon, human recombinant 1mg kit SUBCUT PRN (14:25)
[2023-11-18] MEDS: insulin Lispro (HumaLOG) vial - multi-dose SQ SCH (16:34)
[2023-11-18 19:00] VITALS: RESP 16; O2SAT 95
[2023-11-18 20:00] VITALS: BP 156/89; PULSE 117; RESP 16; TEMP 97.8; O2SAT 95
[2023-11-18] MEDS ORDERED: QUEtiapine 25mg tablet PO PRN (21:09)
[2023-11-18] MEDS: insulin glargine (Lantus) pen - multi-dose SQ SCH (21:40)
[2023-11-18] MEDS: quetiapine 100mg tablet PO SCH (21:44)
[2023-11-18] MEDS: magnesium hydroxide 30ml (MOM) UD suspension PO PRN (21:54)
[2023-11-18] MEDS: acetaminophen 325mg tablet PO PRN (21:59)
[2023-11-19 07:41] VITALS: BP 127/86; PULSE 102; RESP 16; TEMP 98; O2SAT 94
[2023-11-19 08:27] VITALS: RESP 16; O2SAT 97
[2023-11-19] MEDS: naproxen 500mg tablet PO ONE (09:00)
[2023-11-19 09:24] LABS: CHOL/HDL RATIO 5.9 (0.00-4.99); CHOLESTEROL 188 MG/DL (0-200); HDL CHOLESTEROL 32 MG/DL (35-60); LDL CHOLESTEROL 106 MG/DL (50-100); TRIGLYCERIDES 421 MG/DL (20-135)
[2023-11-19 09:33] LABS: HEMOGLOBIN A1C 11.6 % (4.5-6.2)
[2023-11-19 13:19] LABS: THYROID STIMULATING HORMONE 8.06 ulU/ml (0.34-4.50)
[2023-11-19] MEDS: LORazepam 0.5 MG tablet PO PRN (17:24)
[2023-11-19 20:00] VITALS: RESP 16
[2023-11-19] MEDS: OLANZapine 5mg rapidly disint. tablet PO SCH (20:52)
[2023-11-20 07:30] VITALS: BP 133/78; PULSE 86; RESP 16; TEMP 97.4; O2SAT 98
[2023-11-20 07:55] VITALS: RESP 16; O2SAT 98
[2023-11-20] MEDS: levoTHYROXINE 100mcg tablet PO SCH (08:08)
[2023-11-20] MEDS: levoTHYROXINE 25mcg tablet PO SCH (08:08)
[2023-11-20] MEDS: linagliptin 5mg tablet PO SCH (08:08)
[2023-11-20] MEDS: naproxen 500mg tablet PO PRN (12:54)
[2023-11-20 19:00] VITALS: RESP 14; O2SAT 99
[2023-11-20 20:00] VITALS: BP 112/54; PULSE 99; RESP 18; TEMP 97.9; O2SAT 96
[2023-11-21 07:00] VITALS: RESP 14; O2SAT 95
[2023-11-21 08:00] VITALS: BP 102/80; PULSE 89; RESP 14; TEMP 97.9; O2SAT 95
[2023-11-21] MEDS: naproxen 500mg tablet PO ONE (11:13)
[2023-11-21 12:09] LABS: ALBUMIN 3.4 G/DL (3.4-5.0); ANION GAP 11 (8-16); BLOOD UREA NITROGEN 18 MG/DL (7-18); BUN/CREATININE RATIO 17.5 (10.0-20.0); CALCIUM 10.2 MG/DL (8.5-10.1); CHLORIDE 107 MMOL/L (99-107); CREATININE 1.03 MG/DL (0.40-0.90); GLUCOSE 137 MG/DL (70-104); SODIUM 143 MMOL/L (135-145); TOTAL CARBON DIOXIDE 25.5 MMOL/L (24-32); eCRCL 55 ML/MIN; eGFR 56 ML/MIN
[2023-11-21 20:00] VITALS: BP 130/81; PULSE 96; RESP 18; TEMP 97.3; O2SAT 96
[2023-11-21] MEDS: nystatin 15 GM powder TP SCH (20:34)
[2023-11-22] MEDS: OLANZAPINE 5 MG TABLET PO PRN (07:01)
[2023-11-22] MEDS: metFORMIN 500mg tablet PO SCH (07:29)
[2023-11-22 08:00] VITALS: BP_SYST 94; PULSE 98; RESP 16; TEMP 97.3; O2SAT 94
[2023-11-22] MEDS: naproxen 500mg tablet PO PRN (08:53)
[2023-11-22 20:00] VITALS: BP 137/75; PULSE 95; RESP 16; TEMP 98; O2SAT 95
[2023-11-23 07:00] VITALS: RESP 16; O2SAT 96
[2023-11-23 08:00] VITALS: BP 131/84; PULSE 91; RESP 16; TEMP 97.5; O2SAT 96
[2023-11-23 19:00] VITALS: RESP 16; O2SAT 94
[2023-11-23 20:00] VITALS: BP 134/85; PULSE 94; RESP 16; TEMP 98.6; O2SAT 94
[2023-11-24 07:00] VITALS: BP 120/82; PULSE 61; RESP 12; TEMP 97.9; O2SAT 93
[2023-11-24 19:39] VITALS: BP 149/93; PULSE 101; RESP 18; TEMP 97.9; O2SAT 95
[2023-11-24 19:41] VITALS: RESP 18; O2SAT 95
[2023-11-25 07:00] VITALS: RESP 12; O2SAT 93
[2023-11-25 08:00] VITALS: BP 120/82; PULSE 69; RESP 12; TEMP 97.9; O2SAT 93
[2023-11-25 19:00] VITALS: RESP 17; O2SAT 94
[2023-11-25 20:00] VITALS: BP 147/85; PULSE 95; RESP 17; TEMP 97.8; O2SAT 94
[2023-11-25] MEDS: hydrOXYzine 25 MG tablet PO PRN (21:04)
[2023-11-25] MEDS: naproxen 500mg tablet PO SCH (21:05)
[2023-11-26] VITALS (7 sets, daily range): BP systolic 127–188; BP diastolic 71–95; PULSE 82–104; RESP 18–20; TEMP 97.5–98.6; O2SAT 93–96
[2023-11-26] MEDS: cholecalciferol (vitamin D3) 1,000 unit (25mcg) tablet PO SCH (07:29)
[2023-11-26 08:23] LABS: BASOPHILS # (AUTO) 0.1 X10'3 (0-0.2); BASOPHILS % (AUTO) 0.8 % (0-1); EOSINOPHILS # (AUTO) 0.3 X10'3 (0-0.9); EOSINOPHILS % (AUTO) 3.2 % (0-6); HEMATOCRIT 42.3 % (35.0-45.0); HEMOGLOBIN 14.1 g/dl (12.0-16.0); LYMPHOCYTES # (AUTO) 3.5 X10'3 (1.1-4.8); LYMPHOCYTES % (AUTO) 33.3 % (21-51); MEAN CORPUSCULAR HEMOGLOBIN 30.5 PG (27.0-31.0); MEAN CORPUSCULAR HGB CONC 33.3 g/dL (33.0-36.5); MEAN CORPUSCULAR VOLUME 91.5 FL (78-98); MEAN PLATELET VOLUME 8.3 FL (7.4-10.4); MONOCYTES # (AUTO) 0.7 X10'3 (0-0.9); MONOCYTES % (AUTO) 6.7 % (2-12); PLATELET COUNT 280 X10'3 (140-440); RED BLOOD COUNT 4.62 X10'6 (4.20-5.60); RED CELL DISTRIBUTION WIDTH 13.6 % (11.5-14.5); WHITE BLOOD COUNT 10.6 X10'3 (4.5-11.0)
[2023-11-26 08:47] LABS: ALANINE AMINOTRANSFERASE 46 U/L (12-78); ALBUMIN 3.5 G/DL (3.4-5.0); ALBUMIN/GLOBULIN RATIO 1.1 (1.1-1.5); ALKALINE PHOSPHATASE 103 IU/L (46-116); ANION GAP 12 (8-16); ASPARTATE AMINO TRANSFERASE 26 U/L (10-37); BILIRUBIN,TOTAL 0.4 MG/DL (0.1-1.0); BLOOD UREA NITROGEN 19 MG/DL (7-18); BUN/CREATININE RATIO 17.8 (10.0-20.0); CHLORIDE 107 MMOL/L (99-107); CREATININE 1.07 MG/DL (0.40-0.90); GLUCOSE 195 MG/DL (70-104); POTASSIUM 4.1 MMOL/L (3.5-5.1); SODIUM 143 MMOL/L (135-145); TOTAL PROTEIN 6.8 G/DL (6.4-8.2); eCRCL 53 ML/MIN; eGFR 54 ML/MIN
[2023-11-26] MEDS: LORazepam 1 MG tablet PO ONE (17:01)
[2023-11-26] MEDS ORDERED: ondansetron 4mg rapidly disintigrating tab PO PRN (22:40)
[2023-11-26] MEDS ORDERED: albuterol 2.5 MG/3 ML nebule NEB PRN (22:40)
[2023-11-27 07:00] VITALS: RESP 16; O2SAT 96
[2023-11-27 07:30] VITALS: BP 113/74; PULSE 87; RESP 16; TEMP 97.2; O2SAT 96
[2023-11-27] MEDS ORDERED: tizanidine 4mg tablet PO PRN (09:30)
[2023-11-27] MEDS: tizanidine 4mg tablet PO PRN (11:16)
[2023-11-27 19:00] VITALS: RESP 16; O2SAT 94
[2023-11-27 20:00] VITALS: BP 137/66; PULSE 90; RESP 16; TEMP 98.8; O2SAT 94
[2023-11-28 07:30] VITALS: BP 144/80; PULSE 80; RESP 16; TEMP 97.4; O2SAT 97
[2023-11-28] MEDS ORDERED: METF750T46 PO (14:04)
[2023-11-28] MEDS ORDERED: TIZA-205 PO (14:04)
[2023-11-28] MEDS ORDERED: BUS15T PO (14:04)
[2023-11-28] MEDS ORDERED: BREX1TAB PO (14:04)
[2023-11-28] MEDS ORDERED: CHOL100046 PO (14:04)
[2023-11-28] MEDS ORDERED: INSU200I SQ (14:04)
[2023-11-28] MEDS ORDERED: HYDR-3686 PO (14:04)
[2023-11-28] MEDS ORDERED: LINA5TAB4 PO (14:04)
[2023-11-28] MEDS ORDERED: INSU300I12 SQ (14:15)
[2023-11-29] MEDS ORDERED: INSU200I SQ (18:10)
== END 2023-11-28 14:58 | disposition home or self-care (01) | DRG 885 ==
LOC: ER 11:15 → ED HOLD 11-18 07:50 → ADULT MH 11-18 11:48
PROVIDERS: ADMIT Psychiatry & Neurology Psychiatry; ATTEND Psychiatry & Neurology Psychiatry
PROC: GZHZZZZ Group Psychotherapy (ICD-10-PCS; principal; 2023-11-19)
PROC: GZ51ZZZ Individual Psychotherapy, Behavioral (ICD-10-PCS; 2023-11-19)
DX: F33.2 Major depressive disorder, recurrent severe without psychotic features (principal); M32.9 Systemic lupus erythematosus, unspecified; Q79.60 Ehlers-Danlos syndrome, unspecified; R45.851 Suicidal ideations; Z68.41 Body mass index [BMI] 40.0-44.9, adult; E11.9 Type 2 diabetes mellitus without complications; E78.00 Pure hypercholesterolemia, unspecified; F17.210 Nicotine dependence, cigarettes, uncomplicated; K21.9 Gastro-esophageal reflux disease without esophagitis; F43.10 Post-traumatic stress disorder, unspecified; G43.909 Migraine, unspecified, not intractable, without status migrainosus; G89.29 Other chronic pain; M79.7 Fibromyalgia; F12.90 Cannabis use, unspecified, uncomplicated; F41.9 Anxiety disorder, unspecified; E66.01 Morbid (severe) obesity due to excess calories; Z20.822 Contact with and (suspected) exposure to COVID-19; F90.9 Attention-deficit hyperactivity disorder, unspecified type; I10 Essential (primary) hypertension; Z87.442 Personal history of urinary calculi; Z90.49 Acquired absence of other specified parts of digestive tract; Z90.710 Acquired absence of both cervix and uterus; Z88.8 Allergy status to other drugs, medicaments and biological substances; Z88.1 Allergy status to other antibiotic agents; Z91.013 Allergy to seafood; Z79.899 Other long term (current) drug therapy; Z86.73 Personal history of transient ischemic attack (TIA), and cerebral infarction without residual deficits; Z91.51 Personal history of suicidal behavior; Z81.8 Family history of other mental and behavioral disorders
CPT/HCPCS: 36415; 80048; 80053; 80061; 80305; 80320; 81001; 81025; 82948; 83036; 84443; 85025; 87081; 87811; 96372; 99285; A6250; J1815; Q0177

== ENCOUNTER 2024-03-26 19:10 | Inpatient (IN) | payer BC ==
[~2024-03-26] VITALS: Ht 162.6 cm; Wt 109.8 kg
[~2024-03-26 19:10] MED LIST changes: -ATOR20TA66 PO; +ATOR40TA PO; +BREX1TAB PO; +BUS15T PO; +CHOL100046 PO; -DICL100G59 TOP; +HYDR-3686 PO; +INSU200I SQ; +INSU300I12 SQ; -LEVO50TA8 PO; +LINA5TAB4 PO; +PROP10TA10 PO; +TEN1T PO; +TIZA-205 PO; +VITA1CAP45
[2024-03-26 19:57] LABS: BASOPHILS # (AUTO) 0.1 X10'3 (0-0.2); BASOPHILS % (AUTO) 0.8 % (0-1); EOSINOPHILS # (AUTO) 0.4 X10'3 (0-0.9); EOSINOPHILS % (AUTO) 2.7 % (0-6); HEMATOCRIT 47.7 % (35.0-45.0); HEMOGLOBIN 15.7 g/dl (12.0-16.0); LYMPHOCYTES # (AUTO) 5.1 X10'3 (1.1-4.8); LYMPHOCYTES % (AUTO) 37.4 % (21-51); MEAN CORPUSCULAR HEMOGLOBIN 29.4 PG (27.0-31.0); MEAN CORPUSCULAR HGB CONC 32.8 g/dL (33.0-36.5); MEAN CORPUSCULAR VOLUME 89.6 FL (78-98); MEAN PLATELET VOLUME 8.6 FL (7.4-10.4); MONOCYTES # (AUTO) 0.8 X10'3 (0-0.9); NEUTROPHILS # (AUTO) 7.2 X10'3 (1.8-7.7); NEUTROPHILS % (AUTO) 53.1 % (42-75); PLATELET COUNT 395 X10'3 (140-440); RED BLOOD COUNT 5.32 X10'6 (4.20-5.60); RED CELL DISTRIBUTION WIDTH 13.6 % (11.5-14.5); WHITE BLOOD COUNT 13.6 X10'3 (4.5-11.0)
[2024-03-26 20:00] LABS: ALBUMIN 3.7 G/DL (3.4-5.0); ANION GAP 9 (8-16); BLOOD UREA NITROGEN 18 MG/DL (7-18); BUN/CREATININE RATIO 13.5 (10.0-20.0); CALCIUM 11.7 MG/DL (8.5-10.1); CHLORIDE 100 MMOL/L (99-107); CREATININE 1.33 MG/DL (0.40-0.90); ETHANOL < 10 MG/DL (<10); GLUCOSE 267 MG/DL (70-104); POTASSIUM 4.4 MMOL/L (3.5-5.1); SODIUM 137 MMOL/L (135-145); eCRCL 42 ML/MIN; eGFR 42 ML/MIN
[2024-03-26 20:35] LABS: URINE AMPHETAMINE SCREEN NEGATIVE (Neg); URINE BARBITUATE SCREEN NEGATIVE (Neg); URINE BENZODIAZEPINES SCREEN NEGATIVE (Neg); URINE CANNABINOID SCREEN NEGATIVE (Neg); URINE COCAINE SCREEN NEGATIVE (Neg); URINE METHADONE SCREEN NEGATIVE (Neg); URINE OPIATE SCREEN NEGATIVE (Neg); URINE PHENCYCLIDINE SCREEN NEGATIVE (Neg)
[2024-03-26] MEDS: hydrOXYzine 25 MG tablet PO ONE (20:35)
[2024-03-26] MEDS ORDERED: BUSP15TA7 PO (20:56)
[2024-03-26] MEDS ORDERED: METF-1203 PO (20:56)
[2024-03-26] MEDS ORDERED: PROP20TA6 PO (20:56)
[2024-03-26] MEDS ORDERED: GUAN1TAB PO (20:56)
[2024-03-26] MEDS ORDERED: ATOR40TA72 PO (20:56)
[2024-03-26 21:01] LABS: BILIRUBIN,URINE NEGATIVE (Neg); CLARITY,URINE CLEAR (Clear); COLOR,URINE YELLOW (Yellow); GLUCOSE, URINE 500 mg/dl (Neg); KETONES,URINE TRACE mg/dl (Neg); LEUKOCYTE ESTERASE ,URINE NEGATIVE (Neg); NITRITES, URINE NEGATIVE (Neg); OCCULT BLOOD,URINE NEGATIVE (Neg); PH,URINE 5.5 (4.8-8.0); PROTEIN,URINE NEGATIVE (Neg); UROBILINOGEN,URINE 0.2 E.U/dL (0.2-1.0)
[2024-03-26 21:04] LABS: UA COLLECTION TYPE VOIDED
[2024-03-27] MEDS: ibuprofen tablet 400 MG TABLET PO ONE (02:11)
[2024-03-27] MEDS: LORazepam 1 MG tablet PO ONE ×2 (03:24→10:35)
[2024-03-27] MEDS: metFORMIN 500mg tablet PO SCH (07:41)
[2024-03-27] MEDS: propranolol 40mg tablet PO SCH (07:44)
[2024-03-27] MEDS: linagliptin 5mg tablet PO SCH (07:44)
[2024-03-27] MEDS: duloxetine 30mg CAPSULE.DR PO SCH (07:45)
[2024-03-27] MEDS: levoTHYROXINE 100mcg tablet PO SCH (07:45)
[2024-03-27] MEDS: busPIRone 15mg tablet PO SCH (07:45)
[2024-03-27] MEDS ORDERED: non-formulary drug (Atorvastatin Calcium 1 TAB) PO SCH (08:00)
[2024-03-27] MEDS: ibuprofen tablet 400 MG TABLET PO PRN (13:13)
[2024-03-27] MEDS ORDERED: NICOTINE POLACRILEX 2 MG LOZENGE BC PRN (15:50)
[2024-03-27] MEDS ORDERED: magnesium hydroxide 30ml (MOM) UD suspension PO PRN (15:50)
[2024-03-27] MEDS ORDERED: acetaminophen 325mg tablet PO PRN (15:50)
[2024-03-27 16:58] VITALS: RESP 16; O2SAT 94
[2024-03-27 19:00] VITALS: RESP 16; O2SAT 92
[2024-03-27 19:15] VITALS: BP 149/83; PULSE 88; RESP 16; TEMP 97.2; O2SAT 92
[2024-03-27] MEDS: acetaminophen 325mg tablet PO PRN (21:04)
[2024-03-28 07:20] VITALS: BP 147/81; PULSE 85; RESP 12; TEMP 97.7; O2SAT 93
[2024-03-28] MEDS: nicotine 21mg patch - 24 hr TD SCH (07:48)
[2024-03-28 08:05] VITALS: RESP 12; O2SAT 93
[2024-03-28 10:33] LABS: CHOL/HDL RATIO 7.3 (0.00-4.99); CHOLESTEROL 241 MG/DL (0-200); HDL CHOLESTEROL 33 MG/DL (35-60); LDL CHOLESTEROL 151 MG/DL (50-100); TRIGLYCERIDES 434 MG/DL (20-135)
[2024-03-28 10:44] LABS: HEMOGLOBIN A1C 9.8 % (4.5-6.2)
[2024-03-28] MEDS ORDERED: glucagon, human recombinant 1mg kit SUBCUT PRN (11:20)
[2024-03-28] MEDS ORDERED: dextrose 50%-water 50ml dispensing syringe IV PRN ×2 (11:20)
[2024-03-28] MEDS ORDERED: DEXTROSE 15 GM of carb/4 tabs (each vial/BOTTLE has 4 tablets) PO PRN ×2 (11:20)
[2024-03-28] MEDS ORDERED: INSU300I SQ (11:35)
[2024-03-28] MEDS: INSULIN LISPRO 100 UNIT/ML INSULN.PEN MULTI-DOSE SQ SCH (12:00)
[2024-03-28] MEDS: hydrOXYzine 25 MG tablet PO PRN (15:13)
[2024-03-28 19:07] VITALS: RESP 20; O2SAT 93
[2024-03-28 19:10] VITALS: BP 155/103; PULSE 92; RESP 20; TEMP 97.8; O2SAT 93
[2024-03-28] MEDS: pravastatin 40mg tablet PO SCH (20:50)
[2024-03-28] MEDS: insulin glargine (Lantus) pen - multi-dose SQ SCH (20:52)
[2024-03-28] MEDS ORDERED: insulin glargine (Lantus) pen - multi-dose SQ SCH (21:00)
[2024-03-29 08:00] VITALS: BP 152/105; PULSE 89; RESP 16; TEMP 97.8; O2SAT 93
[2024-03-29 19:00] VITALS: RESP 20; O2SAT 93
[2024-03-29 19:16] VITALS: BP 158/97; PULSE 100; RESP 20; TEMP 98.1; O2SAT 93
[2024-03-29] MEDS: mirtazapine 15mg tablet PO SCH (20:37)
[2024-03-29] MEDS: mag hydrox/Alum hydrox/simeth 30ml oral suspension PO PRN (21:44)
[2024-03-30 07:00] VITALS: RESP 16; O2SAT 95
[2024-03-30 08:00] VITALS: BP 152/95; PULSE 89; RESP 16; TEMP 98.4; O2SAT 95
[2024-03-30] MEDS: loperamide 2mg capsule PO PRN (11:42)
[2024-03-30] MEDS ORDERED: ondansetron 4mg rapidly disintigrating tab PO PRN (15:25)
[2024-03-30 19:30] VITALS: BP 141/80; PULSE 83; RESP 18; TEMP 97.6; O2SAT 94
[2024-03-30] MEDS: prazosin 1mg capsule PO SCH (20:33)
[2024-03-31 07:00] VITALS: RESP 18; O2SAT 95
[2024-03-31 08:00] VITALS: BP 145/87; PULSE 93; RESP 18; TEMP 98.5; O2SAT 95
[2024-03-31] MEDS: pantoprazole 40mg Tablet.DR PO SCH (08:41)
[2024-03-31] MEDS: cholecalciferol (vitamin D3) 1,000 unit (25mcg) tablet PO SCH (08:44)
[2024-03-31 08:45] LABS: ALANINE AMINOTRANSFERASE 67 U/L (12-78); ALBUMIN 3.6 G/DL (3.4-5.0); ALBUMIN/GLOBULIN RATIO 0.9 (1.1-1.5); ALKALINE PHOSPHATASE 87 IU/L (46-116); ANION GAP 9 (8-16); ASPARTATE AMINO TRANSFERASE 42 U/L (10-37); BILIRUBIN,TOTAL 0.6 MG/DL (0.1-1.0); BLOOD UREA NITROGEN 17 MG/DL (7-18); BUN/CREATININE RATIO 16.2 (10.0-20.0); CALCIUM 10.2 MG/DL (8.5-10.1); CHLORIDE 103 MMOL/L (99-107); CREATININE 1.05 MG/DL (0.40-0.90); GLUCOSE 252 MG/DL (70-104); POTASSIUM 4.4 MMOL/L (3.5-5.1); SODIUM 140 MMOL/L (135-145); THYROID STIMULATING HORMONE 9.39 ulU/ml (0.34-4.50); TOTAL CARBON DIOXIDE 28.1 MMOL/L (24-32); TOTAL PROTEIN 7.7 G/DL (6.4-8.2); eCRCL 54 ML/MIN; eGFR 55 ML/MIN
[2024-03-31] MEDS: ibuprofen tablet 400 MG TABLET PO PRN (11:28)
[2024-03-31 19:30] VITALS: RESP 18; O2SAT 94
[2024-03-31 20:43] VITALS: BP 145/79; PULSE 82; RESP 18; TEMP 97.6; O2SAT 94
[2024-04-01 07:00] VITALS: RESP 16; O2SAT 94
[2024-04-01 08:00] VITALS: BP 129/81; PULSE 94; RESP 16; TEMP 97.6; O2SAT 94
[2024-04-01] MEDS: levoTHYROXINE 100mcg tablet PO SCH (08:24)
[2024-04-01] MEDS: levoTHYROXINE 25mcg tablet PO SCH (08:24)
[2024-04-01] MEDS: nystatin 15 GM powder TP ONE (14:14)
[2024-04-01 19:30] VITALS: RESP 18; O2SAT 94
[2024-04-01 19:53] VITALS: BP 142/79; PULSE 84; RESP 18; TEMP 97.4; O2SAT 94
[2024-04-01] MEDS: insulin glargine (Lantus) pen - multi-dose SQ SCH (20:59)
[2024-04-01] MEDS: nystatin 15 GM powder TP SCH (21:04)
[2024-04-02 07:00] VITALS: RESP 16; O2SAT 94
[2024-04-02 08:00] VITALS: BP 133/80; PULSE 83; RESP 16; TEMP 97.8; O2SAT 94
[2024-04-02 19:20] VITALS: BP 151/85; PULSE 82; RESP 18; TEMP 97.5; O2SAT 94
[2024-04-02] MEDS: insulin glargine (Lantus) pen - multi-dose SQ SCH (21:03)
[2024-04-03 07:00] VITALS: RESP 16; O2SAT 97
[2024-04-03 08:00] VITALS: BP 119/69; PULSE 75; RESP 16; TEMP 97.9; O2SAT 97
[2024-04-03] MEDS ORDERED: NYSPWD TP (11:14)
== END 2024-04-03 12:40 | disposition home or self-care (01) | DRG 885 ==
LOC: ER 19:10 → ED HOLD 03-27 14:15 → ADULT MH 03-27 15:47
PROVIDERS: ADMIT Psychiatry & Neurology Psychiatry; ATTEND Psychiatry & Neurology Psychiatry
PROC: GZHZZZZ Group Psychotherapy (ICD-10-PCS; principal; 2024-03-28)
PROC: GZ51ZZZ Individual Psychotherapy, Behavioral (ICD-10-PCS; 2024-03-28)
DX: F33.2 Major depressive disorder, recurrent severe without psychotic features (principal); R45.851 Suicidal ideations; E11.9 Type 2 diabetes mellitus without complications; E78.5 Hyperlipidemia, unspecified; F43.10 Post-traumatic stress disorder, unspecified; I10 Essential (primary) hypertension; E06.3 Autoimmune thyroiditis; K21.9 Gastro-esophageal reflux disease without esophagitis; Z20.822 Contact with and (suspected) exposure to COVID-19; F90.9 Attention-deficit hyperactivity disorder, unspecified type; F41.1 Generalized anxiety disorder; G89.4 Chronic pain syndrome; M79.7 Fibromyalgia; Z87.442 Personal history of urinary calculi; Z90.49 Acquired absence of other specified parts of digestive tract; Z90.710 Acquired absence of both cervix and uterus; Z88.8 Allergy status to other drugs, medicaments and biological substances; Z88.1 Allergy status to other antibiotic agents; Z91.013 Allergy to seafood
CPT/HCPCS: 36415; 80048; 80053; 80061; 80305; 80320; 81003; 82948; 83036; 84443; 85025; 87081; 87811; 99285; J1815; Q0177

== ENCOUNTER 2024-09-23 12:37 | Inpatient (IN) | payer BC ==
[~2024-09-23] VITALS: Ht 162.6 cm; Wt 111.4 kg
[~2024-09-23 12:37] MED LIST changes: -ATOR40TA PO; +ATOR40TA72 PO; -BUS15T PO; +BUSP15TA7 PO; -CHOL100046 PO; +GUAN1TAB PO; -HYDR-3686 PO; -INSU200I SQ; +INSU300I SQ; -INSU300I12 SQ; +METF-1203 PO; +NYSPWD TP; -PANT40TA54 PO; -PROP10TA10 PO; +PROP20TA6 PO; -TEN1T PO; -TIZA-205 PO; -TOP100T PO; -VITA1CAP45
[2024-09-23 13:13] LABS: BASOPHILS # (AUTO) 0.1 X10'3 (0-0.2); BASOPHILS % (AUTO) 1.2 % (0-1); EOSINOPHILS # (AUTO) 0.3 X10'3 (0-0.9); EOSINOPHILS % (AUTO) 2.8 % (0-6); HEMATOCRIT 46.6 % (35.0-45.0); HEMOGLOBIN 15.6 g/dl (12.0-16.0); LYMPHOCYTES # (AUTO) 3.4 X10'3 (1.1-4.8); LYMPHOCYTES % (AUTO) 29.8 % (21-51); MEAN CORPUSCULAR HEMOGLOBIN 29.8 PG (27.0-31.0); MEAN CORPUSCULAR HGB CONC 33.5 g/dL (33.0-36.5); MEAN CORPUSCULAR VOLUME 88.9 FL (78-98); MEAN PLATELET VOLUME 8.4 FL (7.4-10.4); MONOCYTES # (AUTO) 0.7 X10'3 (0-0.9); MONOCYTES % (AUTO) 6.3 % (2-12); NEUTROPHILS # (AUTO) 6.8 X10'3 (1.8-7.7); NEUTROPHILS % (AUTO) 59.9 % (42-75); PLATELET COUNT 396 X10'3 (140-440); RED BLOOD COUNT 5.24 X10'6 (4.20-5.60); RED CELL DISTRIBUTION WIDTH 14.8 % (11.5-14.5); WHITE BLOOD COUNT 11.4 X10'3 (4.5-11.0)
[2024-09-23 13:37] LABS: ALBUMIN 3.9 G/DL (3.4-5.0); ANION GAP 12 (8-16); BLOOD UREA NITROGEN 10 MG/DL (7-18); BUN/CREATININE RATIO 7.7 (10.0-20.0); CALCIUM 9.5 MG/DL (8.5-10.1); CHLORIDE 103 MMOL/L (99-107); ETHANOL < 10 MG/DL (<10); GLUCOSE 292 MG/DL (70-104); SODIUM 140 MMOL/L (135-145); TOTAL CARBON DIOXIDE 24.6 MMOL/L (24-32); eCRCL 43 ML/MIN; eGFR 43 ML/MIN
[2024-09-23 14:09] LABS: THYROID STIMULATING HORMONE 90.76 ulU/ml (0.34-4.50)
[2024-09-23 14:41] LABS: URINE HCG NEGATIVE (NEG)
[2024-09-23] MEDS ORDERED: BREX3TAB PO (15:18)
[2024-09-23] MEDS ORDERED: METF750T46 PO (15:18)
[2024-09-23] MEDS ORDERED: CYCL-1 PO (15:18)
[2024-09-23] MEDS ORDERED: ESZO2TAB31 PO (15:18)
[2024-09-23] MEDS ORDERED: HYDR-3686 PO (15:18)
[2024-09-23] MEDS ORDERED: PANT20TA18 PO (15:18)
[2024-09-23] MEDS ORDERED: LINA5TAB4 PO (15:18)
[2024-09-23] MEDS ORDERED: PROP40TA72 PO (15:18)
[2024-09-23 16:16] LABS: URINE AMPHETAMINE SCREEN NEGATIVE (Neg); URINE BARBITUATE SCREEN NEGATIVE (Neg); URINE BENZODIAZEPINES SCREEN NEGATIVE (Neg); URINE CANNABINOID SCREEN NEGATIVE (Neg); URINE COCAINE SCREEN NEGATIVE (Neg); URINE METHADONE SCREEN NEGATIVE (Neg); URINE OPIATE SCREEN NEGATIVE (Neg); URINE PHENCYCLIDINE SCREEN NEGATIVE (Neg)
[2024-09-23 16:18] LABS: BILIRUBIN,URINE NEGATIVE (Neg); CLARITY,URINE CLEAR (Clear); COLOR,URINE YELLOW (Yellow); GLUCOSE, URINE >=1000 mg/dl (Neg); KETONES,URINE 15 mg/dl (Neg); LEUKOCYTE ESTERASE ,URINE NEGATIVE (Neg); NITRITES, URINE NEGATIVE (Neg); OCCULT BLOOD,URINE NEGATIVE (Neg); PH,URINE 5.5 (4.8-8.0); PROTEIN,URINE TRACE mg/dl (Neg); UROBILINOGEN,URINE 0.2 E.U/dL (0.2-1.0)
[2024-09-23 16:20] LABS: UA COLLECTION TYPE CLN CATCH MIDSTREAM
[2024-09-23 16:34] LABS: BACTERIA,URINE FEW /HPF (Neg); RBC,URINE 0-2 /HPF (0-2); WBC,URINE 0-4 /HPF (0-4)
[2024-09-23 16:35] LABS: CAL OXALATE CRYSTALS FEW /HPF (NEGATIVE); SQUAMOUS EPITHELIAL CELL,UR FEW /LPF (FEW)
[2024-09-23] MEDS ORDERED: ESZOPICLONE 2 MG PO PRN (16:55)
[2024-09-23] MEDS ORDERED: DEXTROSE 15 GM of carb/4 tabs (each vial/BOTTLE has 4 tablets) PO PRN ×2 (17:30)
[2024-09-23] MEDS ORDERED: glucagon, human recombinant 1mg kit SUBCUT PRN (17:30)
[2024-09-23] MEDS ORDERED: dextrose 50%-water 50ml dispensing syringe IV PRN ×2 (17:30)
[2024-09-23] MEDS ORDERED: METFORMIN HCL 750 MG PO SCH (20:00)
[2024-09-23] MEDS: hydrOXYzine 25 MG tablet PO PRN (21:13)
[2024-09-23] MEDS: guanFACINE 1 mg tablet PO SCH (21:13)
[2024-09-23] MEDS: ibuprofen tablet 400 MG TABLET PO ONE (21:13)
[2024-09-23] MEDS: busPIRone 15mg tablet PO SCH (21:13)
[2024-09-23] MEDS: duloxetine 30mg CAPSULE.DR PO SCH (21:13)
[2024-09-23] MEDS: propranolol 40mg tablet PO SCH (21:13)
[2024-09-23] MEDS: metFORMIN 500mg tablet PO SCH (21:13)
[2024-09-23] MEDS: insulin glargine (Lantus) pen - multi-dose SQ SCH (21:21)
[2024-09-23] MEDS: INSULIN LISPRO 100 UNIT/ML INSULN.PEN MULTI-DOSE SQ SCH (21:22)
[2024-09-24] VITALS (8 sets, daily range): BP systolic 150–174; BP diastolic 84–100; PULSE 68–80; RESP 12–18; TEMP 97.3–98.2; O2SAT 94–96
[2024-09-24] MEDS: linagliptin 5mg tablet PO SCH (07:37)
[2024-09-24] MEDS: atorvastatin 20mg tablet PO SCH (07:37)
[2024-09-24] MEDS: levoTHYROXINE 100mcg tablet PO SCH (07:38)
[2024-09-24] MEDS: pantoprazole 40mg Tablet.DR PO SCH (07:38)
[2024-09-24] MEDS: pneumococcal 23-VAL P-sac vacc 25 mcg/0.5ml vial IMVAC ONE (10:00)
[2024-09-24] MEDS: FLU VACC TS2024-25(6MOS UP)/PF 45 MCG/0.5 ML SYRINGE IMVAC ONE (10:00)
[2024-09-24] MEDS ORDERED: loperamide 2mg capsule PO PRN (12:25)
[2024-09-24] MEDS ORDERED: magnesium hydroxide 30ml (MOM) UD suspension PO PRN (12:25)
[2024-09-24] MEDS ORDERED: acetaminophen 325mg tablet PO PRN (12:25)
[2024-09-24] MEDS ORDERED: mag hydrox/Alum hydrox/simeth 30ml oral suspension PO PRN (12:25)
[2024-09-24] MEDS: acetaminophen 325mg tablet PO PRN (12:46)
[2024-09-24] MEDS: ibuprofen 200mg tablet PO PRN (19:51)
[2024-09-24] MEDS: hyDRALAzine 10mg tablet PO SCH (19:52)
[2024-09-24] MEDS: amLODIPine 5mg tablet PO ONE (21:41)
[2024-09-25 07:00] VITALS: RESP 14; O2SAT 94
[2024-09-25] MEDS: aripiprazole 10MG tablet PO SCH (07:46)
[2024-09-25 08:00] VITALS: BP 172/103; PULSE 80; RESP 14; TEMP 97.6; O2SAT 96
[2024-09-25 18:33] LABS: FREE T4 (FREE THYROXINE) 0.99 NG/DL (0.73-1.40)
[2024-09-25 18:45] LABS: THYROID STIMULATING HORMONE 54.57 ulU/ml (0.34-4.50)
[2024-09-25 19:00] VITALS: RESP 18; O2SAT 95
[2024-09-25 20:00] VITALS: BP 172/121; PULSE 88; RESP 16; TEMP 97.9; O2SAT 95
[2024-09-25] MEDS ORDERED: hyDRALAzine 10mg tablet PO ONE (21:25)
[2024-09-25] MEDS: cyclobenzaprine 10mg tablet PO PRN (21:46)
[2024-09-25] MEDS: hydrALAZINE 25 MG tablet PO ONE (21:47)
[2024-09-26 07:30] VITALS: BP 164/100; PULSE 79; RESP 16; TEMP 97.6
[2024-09-26] MEDS: levoTHYROXINE 112mcg tablet PO SCH (07:42)
[2024-09-26] MEDS: duloxetine 30mg CAPSULE.DR PO SCH (07:43)
[2024-09-26 08:00] VITALS: RESP 16; O2SAT 94
[2024-09-26 19:14] VITALS: RESP 16
[2024-09-26 19:49] VITALS: BP 148/100; PULSE 85; RESP 16; TEMP 98.1; O2SAT 95
[2024-09-27] MEDS: venlafaxine XR 37.5mg cap (Q24H) PO SCH (07:31)
[2024-09-27] MEDS: levoTHYROXINE 100mcg tablet PO SCH (07:32)
[2024-09-27 07:35] VITALS: RESP 16; O2SAT 95
[2024-09-27 08:00] VITALS: BP 186/95; PULSE 90; RESP 16; TEMP 97; O2SAT 95
[2024-09-27] MEDS: ondansetron 4mg rapidly disintigrating tab PO ONE (12:38)
[2024-09-27 19:22] VITALS: BP 175/99; PULSE 88; RESP 16; TEMP 98.2; O2SAT 91
[2024-09-27 19:53] VITALS: RESP 16; O2SAT 91
[2024-09-27] MEDS: SUMAtriptan 25 MG tablet PO PRN (21:52)
[2024-09-28 07:30] VITALS: BP 136/85; PULSE 89; RESP 14; TEMP 97.7; O2SAT 94
[2024-09-28] MEDS: venlafaxine XR 37.5mg cap (Q24H) PO SCH (07:32)
[2024-09-28] MEDS: ondansetron 4mg rapidly disintigrating tab PO PRN (11:32)
[2024-09-28] MEDS ORDERED: polyethylene glycol 3350 17gm powd pack PO PRN (17:45)
[2024-09-28 19:09] VITALS: BP 166/89; PULSE 87; RESP 20; TEMP 98.5; O2SAT 99
[2024-09-29] VITALS (10 sets, daily range): BP systolic 157–195; BP diastolic 84–118; PULSE 81–87; RESP 16–22; TEMP 97.6–97.7; O2SAT 90–95
[2024-09-29] MEDS: lisinopril 10 MG tablet PO SCH (11:20)
[2024-09-29] MEDS: traMADol 50MG tablet PO PRN (16:53)
[2024-09-29] MEDS: magnesium citrate 296ml oral solution PO ONE (17:10)
[2024-09-29] MEDS: polyethylene glycol 3350 17gm powd pack PO SCH (21:32)
[2024-09-30 07:25] VITALS: BP 195/102; PULSE 88; RESP 17; TEMP 98; O2SAT 93
[2024-09-30 07:31] VITALS: RESP 17; O2SAT 93
[2024-09-30] MEDS: lisinopril 10 MG tablet PO SCH (07:33)
[2024-09-30 09:13] VITALS: BP 152/84; PULSE 77
[2024-09-30] MEDS: SUMAtriptan 25 MG tablet PO PRN (10:12)
[2024-09-30 12:01] VITALS: BP 161/91; PULSE 74; O2SAT 94
[2024-09-30 19:00] VITALS: BP 189/95; PULSE 83; RESP 20; TEMP 97.7; O2SAT 93
[2024-09-30] MEDS: prazosin 1mg capsule PO SCH (20:53)
[2024-09-30] MEDS: propranolol 40mg tablet PO SCH (20:55)
[2024-10-01 07:00] VITALS: RESP 17; O2SAT 93
[2024-10-01 08:32] VITALS: BP 153/104; PULSE 93; RESP 16; TEMP 97.4; O2SAT 93
[2024-10-01 20:00] VITALS: BP 197/102; PULSE 97; RESP 16; TEMP 97.1; O2SAT 94
[2024-10-01 21:00] VITALS: BP 184/110; RESP 16
[2024-10-01 22:30] VITALS: BP 137/85; PULSE 78; RESP 16; O2SAT 94
[2024-10-02 07:00] VITALS: RESP 16; O2SAT 95
[2024-10-02 08:00] VITALS: BP 156/83; PULSE 90; RESP 18; TEMP 98.6; O2SAT 9
[2024-10-02 20:00] VITALS: BP 197/90; PULSE 87; RESP 18; TEMP 97.8; O2SAT 95
[2024-10-03 07:30] VITALS: BP 168/97; PULSE 90; RESP 14; TEMP 97.6; O2SAT 97
[2024-10-03] MEDS ORDERED: PANT40TA54 PO (18:38)
[2024-10-03] MEDS ORDERED: LANTUS SQ (18:38)
[2024-10-03] MEDS ORDERED: LISI10TA27 PO (18:38)
[2024-10-03] MEDS ORDERED: LEVO200T8 PO (18:38)
[2024-10-03] MEDS ORDERED: PROP40TA72 PO (18:38)
[2024-10-03] MEDS ORDERED: SUMA25TA9 PO (18:38)
[2024-10-03] MEDS ORDERED: VENL37.59 PO (18:38)
[2024-10-03] MEDS ORDERED: METF750T46 PO (18:38)
[2024-10-03] MEDS ORDERED: PRAZ1CAP5 PO (18:38)
[2024-10-03] MEDS ORDERED: ARIP10TA87 PO (18:38)
[2024-10-03 19:00] VITALS: RESP 18; O2SAT 95
[2024-10-03 20:00] VITALS: BP 170/110; PULSE 87; RESP 18; TEMP 98.3; O2SAT 95
[2024-10-03 22:20] VITALS: BP 140/85; PULSE 60
[2024-10-04 07:00] VITALS: RESP 16; O2SAT 96
[2024-10-04 08:00] VITALS: BP 153/91; PULSE 89; RESP 16; TEMP 97.3; O2SAT 96
[2024-10-05] MEDS ORDERED: HYDROchlorothiazide 12.5mg capsule PO SCH (08:00)
[2024-10-05] MEDS ORDERED: lisinopril 20mg tablet PO SCH (08:00)
== END 2024-10-04 12:15 | disposition home or self-care (01) | DRG 885 ==
LOC: ER 12:37 → ADULT MH 21:00 → UNDOADMIN 21:00 → ED HOLD 21:00 → ADULT MH 09-27 13:59
PROVIDERS: ADMIT Psychiatry & Neurology Psychiatry; ATTEND Psychiatry & Neurology Psychiatry
PROC: GZHZZZZ Group Psychotherapy (ICD-10-PCS; principal; 2024-09-24)
PROC: GZ51ZZZ Individual Psychotherapy, Behavioral (ICD-10-PCS; 2024-09-28)
DX: F31.81 Bipolar II disorder (principal); R45.851 Suicidal ideations; Z68.41 Body mass index [BMI] 40.0-44.9, adult; F41.1 Generalized anxiety disorder; G43.909 Migraine, unspecified, not intractable, without status migrainosus; Z20.822 Contact with and (suspected) exposure to COVID-19; E11.9 Type 2 diabetes mellitus without complications; E66.3 Overweight; I10 Essential (primary) hypertension; G89.29 Other chronic pain; M54.9 Dorsalgia, unspecified; Z79.899 Other long term (current) drug therapy; Z87.442 Personal history of urinary calculi; Z90.49 Acquired absence of other specified parts of digestive tract; Z90.710 Acquired absence of both cervix and uterus; Z86.73 Personal history of transient ischemic attack (TIA), and cerebral infarction without residual deficits; Z88.8 Allergy status to other drugs, medicaments and biological substances; Z88.1 Allergy status to other antibiotic agents; Z91.013 Allergy to seafood
CPT/HCPCS: 36415; 80048; 80305; 80320; 81001; 81025; 82948; 84439; 84443; 85025; 87811; 99285; J1815; Q0177